=== PATIENT | female | born 1945 | race Caucasian/White ===

== ENCOUNTER 2018-10-23 21:05 | Emergency (ER) | payer SELFPAY ==
[~2018-10-23] VITALS: Ht 160 cm; Wt 68.9 kg
[2018-10-23 21:15] VITALS: Ht 160 cm; Wt 68.9 kg
[2018-10-24 00:51] VITALS: BP 134/66
== END 2018-10-24 00:51 | disposition home or self-care (01) ==
LOC: ED 21:05
DX: I10 Essential (primary) hypertension (principal); E78.00 Pure hypercholesterolemia, unspecified